=== PATIENT | male | born 1950 | race Caucasian/White ===

== ENCOUNTER 2017-09-11 14:56 | Outpatient (CLI) | payer MEDICARE, BC | END 2017-09-11 14:57 | disposition home or self-care (01) | LOC: BICRAD 14:56 | PROVIDERS: ATTEND Physician Assistant | DX: S20.212A Contusion of left front wall of thorax, initial encounter (principal) | CPT/HCPCS: 71046 ==

== ENCOUNTER 2018-09-05 14:03 | Outpatient (CLI) | payer MEDICARE, BC ==
--- NOTE | 2018-09-05 14:45 | RAD ---
8 views of the cervical spine INDICATION: Cervical radiculopathy FINDINGS: The patient's cervical spine is held in kyphosis. There is slight anterior translation of C3 on C4 an d C4-C5. The anterior translation of C3 on C4 is accentuated with flexion but does not appreciably reduce with extension. Lateral masses appear symmetric. Lung apices are clear. IMPRESSION: Moderate severe spondylosis cervical spine. Mild anterior translation of motion seen at C 3-4 with flexion. This does not appear to appreciably reduce with extension. There is mild anterior translation of C4-C5 without abnormal translational motion.
--- NOTE | 2018-09-05 15:35 | RAD ---
2 VIEWS CHEST: Date: 09/05/18 COMPARISON: 09/11/17. HISTORY: Dyspnea on exertion for several years. FINDINGS: Two views of the chest show normal sized cardiomediastinal silhouette. There is no evidence of consol idation, mass, or pleural effusion. Degenerative changes are seen in the spine. IMPRESSION: No evidence of acute cardiopulmonary disease. POS: OFF
== END 2018-09-05 14:04 | disposition home or self-care (01) ==
LOC: BICRAD 14:03
PROVIDERS: ATTEND Family Medicine
DX: M47.22 Other spondylosis with radiculopathy, cervical region (principal); R06.00 Dyspnea, unspecified
CPT/HCPCS: 71046; 72052

== ENCOUNTER 2018-09-21 15:58 | Emergency (ER) | payer MEDICARE, BC ==
[2018-09-21 16:29] LABS: #Basophils 0.1 thou/uL (0.0-0.2); #Eosinphils 0.1 thou/uL (0.0-0.7); #Lymphocytes 2.2 thou/uL (1.20-3.40); #Monocytes 1.2 thou/uL (0.11-0.59); #Neutrophils 5.9 thou/uL (1.40-6.50); %Basophils 0.6 % (0.0-1.0); %Eosinophils 1.6 % (0.0-10.0); %Monocytes 13.1 % (0.0-10.0); %Neutrophils 61.7 % (42.0-75.0); Hemoglobin 16.2 g/dL (14.0-18.0); Mean Corpuscular HGB CONC 35.7 g/dL (32.0-36.0); Mean Corpuscular Hemoglobin 36.2 pg (27.0-31.0); Mean Platelet Volume 7.2 fL (7.4-10.4); Platelet Count 240 thou/uL (130-400); RBC Distribution Width 11.5 % (11.5-14.5); Red Blood Cell (RBC) Count 4.48 mill/uL (4.70-6.10); White Blood Cell (WBC) Count 9.5 thou/uL (4.8-10.8)
[2018-09-21 16:51] LABS: ALT (SGPT) 45 U/L (8-55); AST (SGOT) 39 U/L (5-34); Albumin 4.5 g/dL (3.4-4.8); Alkaline Phosphatase 55 U/L (40-150); Anion Gap 15 mmol/L (10-20); BUN (Urea Nitrogen) 14 mg/dL (8.4-25.7); Calc. Creatinine Clearance 0 mL/min (70-130); Calcium 10.1 mg/dL (7.8-10.44); Carbon Dioxide 26 mmol/L (23-31); Chloride 104 mmol/L (98-107); Estimated GFR-MDRD 90; Globulin 2.6 g/dL (2.4-3.5); Glucose 95 mg/dL (80-115); Potassium 3.9 mmol/L (3.5-5.1); Protein, Total 7.1 g/dL (5.8-8.1); Sodium 141 mmol/L (136-145)
--- NOTE | 2018-09-21 17:51 | RAD ---
Exam: Chest one view HISTORY:Chest pain Comparison: 09/11/2017 FINDINGS: Cardiac silhouette:Mildly enlarged Pulmonary vessels: Normal Costophrenic angles: Minimal blunting of both costophrenic angles. LUNGS: Slightly diminished lung volumes, likely due to poor inspiratory effort. Bibasilar atelectasis . No masses or consolidation. Pneumothorax: None Osseous abnormalities: None IMPRESSION: 1. Mild cardiomegaly. 2. Slightly diminished lung volumes, likely due to poor inspiratory effort. Bibasilar atelectasis.
== END 2018-09-21 18:35 | disposition home or self-care (01) ==
LOC: ERS 15:58
DX: R00.2 Palpitations (principal); I10 Essential (primary) hypertension; E03.9 Hypothyroidism, unspecified; F17.200 Nicotine dependence, unspecified, uncomplicated
CPT/HCPCS: 36415; 71045; 80053; 84443; 84484; 85025; 93005

== ENCOUNTER 2018-11-08 16:03 | Outpatient (CLI) | payer MEDICARE, BC ==
[2018-11-08 16:59] LABS: Eosinophils 1 % (0-10); Hemoglobin 16.7 g/dL (14.0-18.0); Lymphocytes 21 % (21-51); MDiff Complete? YES; Macrocytosis SLIGHT = 6-15 cells (100X) (0-5/hpf); Mean Corpuscular HGB CONC 34.9 g/dL (32.0-36.0); Mean Corpuscular Hemoglobin 35.9 pg (27.0-31.0); Mean Platelet Volume 7.1 fL (7.4-10.4); Monocytes 11 % (0-10); Neutrophil 62 % (42-75); Platelet Count 229 thou/uL (130-400); Platelet Morphology Comment Appears Adequate; RBC Distribution Width 11.4 % (11.5-14.5); Reactive Lymphocytes 5 % (0-10); Red Blood Cell (RBC) Count 4.66 mill/uL (4.70-6.10); White Blood Cell (WBC) Count 8.9 thou/uL (4.8-10.8)
[2018-11-08 17:05] LABS: ALT (SGPT) 37 U/L (8-55); AST (SGOT) 36 U/L (5-34); Albumin 4.5 g/dL (3.4-4.8); Alkaline Phosphatase 51 U/L (40-150); Anion Gap 12 mmol/L (10-20); BUN (Urea Nitrogen) 14 mg/dL (8.4-25.7); Bilirubin, Total 0.7 mg/dL (0.2-1.2); Calc. Creatinine Clearance 0 mL/min (70-130); Calcium 9.6 mg/dL (7.8-10.44); Carbon Dioxide 25 mmol/L (23-31); Chloride 104 mmol/L (98-107); Estimated GFR-MDRD Greater than 90; Globulin 2.4 g/dL (2.4-3.5); Glucose 87 mg/dL (80-115); Potassium 4.2 mmol/L (3.5-5.1); Protein, Total 6.9 g/dL (5.8-8.1); Sodium 137 mmol/L (136-145)
== END 2018-11-08 16:04 | disposition home or self-care (01) ==
LOC: LABBT 16:03
PROVIDERS: ATTEND Internal Medicine Cardiovascular Disease
DX: Z01.812 Encounter for preprocedural laboratory examination (principal); R06.09 Other forms of dyspnea
CPT/HCPCS: 80053; 85025

== ENCOUNTER 2018-11-12 06:00 | Day surgery (SDC) | payer MEDICARE, BC ==
[2018-11-08 16:13] VITALS: BMI 39.4
[2018-11-12] MEDS ORDERED: Lidocaine 1% (PF) 30 ML VIAL ONE (06:29)
[2018-11-12] MEDS ORDERED: Verapamil 5 MG/2 ML VIAL ONE (06:48)
[2018-11-12] MEDS ORDERED: Nitroglycerin 100MG/250ML BOT 250 ML ONE (06:48)
[2018-11-12] MEDS ORDERED: Heparin 10,000 UNITS/1 ML VIAL ONE (06:48)
[2018-11-12] MEDS ORDERED: Midazolam HCl 2 mg/2 ml Vial ONE (07:23)
[2018-11-12] MEDS ORDERED: Fentanyl 100 MCG/2 ML VIAL ONE (07:23)
[2018-11-12] MEDS ORDERED: Iopamidol 370 76% 100 ML VIAL ONE (10:32)
== END 2018-11-12 10:10 | disposition home or self-care (01) ==
LOC: CCL 06:00
PROVIDERS: ATTEND Internal Medicine Cardiovascular Disease
PROC: 4A023N7 Measurement of Cardiac Sampling and Pressure, Left Heart, Percutaneous Approach (ICD-10-PCS; principal; 2018-11-12)
PROC: B2111ZZ Fluoroscopy of Multiple Coronary Arteries using Low Osmolar Contrast (ICD-10-PCS; 2018-11-12)
DX: I25.10 Atherosclerotic heart disease of native coronary artery without angina pectoris (principal); I10 Essential (primary) hypertension; E78.5 Hyperlipidemia, unspecified; G47.33 Obstructive sleep apnea (adult) (pediatric); F17.290 Nicotine dependence, other tobacco product, uncomplicated; E66.9 Obesity, unspecified; Z68.39 Body mass index [BMI] 39.0-39.9, adult; Z79.899 Other long term (current) drug therapy; Z88.1 Allergy status to other antibiotic agents; Z99.89 Dependence on other enabling machines and devices
CPT/HCPCS: 93458; 99152; C1769; J1644; J2001; J2250; J3010; Q9967

== ENCOUNTER 2020-04-17 17:05 | Emergency (ER) | payer BC, MEDICARE, OTHER ==
[2020-04-17] MEDS ORDERED: Cyclobenzaprine 10 MG TAB ONE (17:40)
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
== END 2020-04-17 18:51 | disposition home or self-care (01) ==
LOC: ERS 17:05
DX: S63.613A Unspecified sprain of left middle finger, initial encounter (principal); M25.551 Pain in right hip; M25.552 Pain in left hip; M79.605 Pain in left leg; M79.661 Pain in right lower leg; I10 Essential (primary) hypertension; E78.00 Pure hypercholesterolemia, unspecified; E03.9 Hypothyroidism, unspecified; F17.200 Nicotine dependence, unspecified, uncomplicated; Z79.899 Other long term (current) drug therapy; V49.40XA Driver injured in collision with unspecified motor vehicles in traffic accident, initial encounter
CPT/HCPCS: 72170